=== PATIENT | female | born 1965 | race Caucasian/White ===

== ENCOUNTER → 2017-10-31 | Outpatient (CLI) | payer BC ==
--- NOTE | 2017-11-03 10:09 | MM ---
Reason for exam: screening (asymptomatic). Last mammogram was performed 1 year and 4 months ago. History: Family history of breast cancer in paternal grandmother at age 70. Took hormonal contraceptives for 6 years beginning at age 20. Physical Findings: A clinical breast exam by your physician is recommended on an annual basis and results should be correlated with mammographic findings. MG 3D Screening Mammo W/Cad Bilateral CC and MLO view(s) were taken. Prior study comparison: July 01, 2016, bilateral MG 3d diag mammo w/cad JOY. February 27, 2016, left breast MG diagnostic mammo LT w CAD. The breast tissue is heterogeneously dense. This may lower the sensitivity of mammography. Finding: There are typically benign round, grouped/clustered calcifications in the left breast. There is no discrete abnormality. ASSESSMENT: Benign, BI-RAD 2 RECOMMENDATION: Routine screening mammogram of both breasts in 1 year.
== END | disposition home or self-care (01) ==
LOC: RADMAMWWP 17:04
PROVIDERS: ATTEND Family Medicine
DX: Z12.31 Encounter for screening mammogram for malignant neoplasm of breast (principal)
CPT/HCPCS: 77063; 77067

== ENCOUNTER → 2018-11-16 | Outpatient (CLI) | payer BC ==
--- NOTE | 2018-11-17 12:59 | MM ---
Reason for exam: screening (asymptomatic). Last mammogram was performed 1 year and 1 month ago. History: Family history of breast cancer in paternal grandmother at age 70. Took hormonal contraceptives for 6 years beginning at age 20. Physical Findings: A clinical breast exam by your physician is recommended on an annual basis and results should be correlated with mammographic findings. MG 3D Screening Mammo W/Cad Bilateral CC and MLO view(s) were taken. Prior study comparison: October 31, 2017, bilateral MG 3d screening mammo w/cad. July 01, 2016, bilateral MG 3d diag mammo w/cad JOY. The breast tissue is heterogeneously dense. This may lower the sensitivity of mammography. No significant changes when compared with prior studies. ASSESSMENT: Negative, BI-RAD 1 RECOMMENDATION: Routine screening mammogram of both breasts in 1 year.
== END | disposition home or self-care (01) ==
LOC: RADMAMWWP 16:25
PROVIDERS: ATTEND Family Medicine
DX: Z12.31 Encounter for screening mammogram for malignant neoplasm of breast (principal)
CPT/HCPCS: 77063; 77067

== ENCOUNTER → 2020-05-22 | Outpatient (CLI) | payer BC ==
--- NOTE | 2020-05-23 11:14 | MM ---
Reason for exam: screening (asymptomatic). Last mammogram was performed 1 year and 6 months ago. History: Family history of breast cancer in paternal grandmother at age 70. Took hormonal contraceptives for 6 years beginning at age 20. Physical Findings: A clinical breast exam by your physician is recommended on an annual basis and results should be correlated with mammographic findings. MG 3D Screening Mammo W/Cad Bilateral CC and MLO view(s) were taken. Prior study comparison: November 16, 2018, bilateral MG 3d screening mammo w/cad. October 31, 2017, bilateral MG 3d screening mammo w/cad. The breast tissue is heterogeneously dense. This may lower the sensitivity of mammography. There are benign appearing round calcifications bilaterally. There is no discrete abnormality. ASSESSMENT: Benign, BI-RAD 2 RECOMMENDATION: Routine screening mammogram of both breasts in 1 year.
== END | disposition home or self-care (01) ==
LOC: RADMAMWWP 12:41
PROVIDERS: ATTEND Family Medicine
DX: Z12.31 Encounter for screening mammogram for malignant neoplasm of breast (principal)
CPT/HCPCS: 77063; 77067

== ENCOUNTER → 2020-11-24 | Outpatient (CLI) | payer BC | END | disposition home or self-care (01) | LOC: LABWHC1 15:53 | PROVIDERS: ATTEND Internal Medicine Rheumatology | DX: M35.01 Sjogren syndrome with keratoconjunctivitis (principal); L12.1 Cicatricial pemphigoid | CPT/HCPCS: 36415; 82955 ==

== ENCOUNTER → 2020-12-08 | Outpatient (CLI) | payer BC ==
[2020-12-08 15:35] LABS: HCT 29.3 % (37.2-46.3); MCH 34.1 pg (27.0-32.0); MCHC 30.7 g/dL (32.0-37.0); Mean Platelet Volume 11.7 fL (9.5-12.2); Platelet Count 275 X 10*3/uL (140-440); RBC 2.64 X 10*6/uL (4.10-5.20); RDW 22.7 % (11.5-14.5)
[2020-12-08 18:52] LABS: Basophils # (A) 0.15 X 10*3/uL (0.00-0.10); Basophils % (A) 1.3 %; Eosinophils # (A) 0.21 X 10*3/uL (0.04-0.35); Eosinophils % (A) 1.9 %; Lymphocytes # (A) 2.81 X 10*3/uL (0.90-5.00); Lymphocytes % (A) 24.9 %; Monocytes # (A) 0.81 X 10*3/uL (0.20-1.00); Monocytes % (A) 7.2 %; Neutrophils # (A) 7.24 X 10*3/uL (1.80-7.70)
[2020-12-08 18:53] LABS: Anisocytosis (M) 2+; Microcytosis (M) 3+; Polychromasia 2+; Schistocytes 1+
[2020-12-08 19:02] LABS: African American GFR (CKD) 97.6 (60.0-200.0); Albumin 4.3 g/dL (3.80-4.90); Albumin/Globulin Ratio 2.05 (1.60-3.17); Anion Gap 7.4 mmol/L (4.00-12.00); BUN/Creat Ratio 23.75 Ratio (12.00-20.00); Calcium 9.3 mg/dL (8.7-10.3); Carbon Dioxide 27.6 mmol/L (21.6-31.8); Chol/HDL Ratio 2.61; Globulin 2.1 g/dL (1.6-3.3); LDL Cholesterol,Calculated 99.6 mg/dL (0.0-131.0); Non-African American GFR(CKD) 84.2 (60.0-200.0); Potassium 4.5 mmol/L (3.5-5.5); Total Bilirubin 5.8 mg/dL (0.3-1.2); Total Protein 6.4 g/dL (6.2-8.2); VLDL Calculation 11.4 mg/dL (5.00-40.00)
[2020-12-08 19:09] LABS: T4, Free (Free Thyroxine) 1.2 ng/dL (0.80-1.80)
== END ==
LOC: LABWHC1 07:45
PROVIDERS: ATTEND Internal Medicine Rheumatology
DX: Z00.00 Encounter for general adult medical examination without abnormal findings (principal); Z51.81 Encounter for therapeutic drug level monitoring; M35.01 Sjogren syndrome with keratoconjunctivitis
CPT/HCPCS: 36415; 80053; 80061; 84439; 84443; 85025

== ENCOUNTER → 2021-06-12 | Outpatient (CLI) | payer BC ==
--- NOTE | 2021-06-13 14:44 | MM ---
Reason for exam: screening (asymptomatic). Last mammogram was performed 1 year and 1 month ago. History: Family history of breast cancer in paternal grandmother at age 70. Took hormonal contraceptives for 6 years beginning at age 20. Physical Findings: A clinical breast exam by your physician is recommended on an annual basis and results should be correlated with mammographic findings. MG 3D Screening Mammo W/Cad Bilateral CC and MLO view(s) were taken. Prior study comparison: May 22, 2020, bilateral MG 3d screening mammo w/cad. November 16, 2018, bilateral MG 3d screening mammo w/cad. October 31, 2017, bilateral MG 3d screening mammo w/cad. Finding: There are typically benign fine, diffuse/scattered calcifications in both breasts. No significant changes in finding since May 22, 2020, November 16, 2018, and October 31, 2017. ASSESSMENT: Benign, BI-RAD 2 RECOMMENDATION: Routine screening mammogram of both breasts in 1 year.
== END | disposition home or self-care (01) ==
LOC: RADMAMWWP 16:21
PROVIDERS: ATTEND Family Medicine
DX: Z12.31 Encounter for screening mammogram for malignant neoplasm of breast (principal); Z80.3 Family history of malignant neoplasm of breast; Z79.3 Long term (current) use of hormonal contraceptives
CPT/HCPCS: 77063; 77067

== ENCOUNTER → 2022-06-14 | Outpatient (CLI) | payer BC ==
--- NOTE | 2022-06-18 08:46 | MM ---
Reason for Exam: Screening (asymptomatic). Last screening mammogram was performed 12 month(s) ago. Patient History: Menarche at age 14. First Full-Term at age 30. Postmenopausal. Hormonal Contraceptives for 6 years from age 20 until age 26. Paternal grandmother had breast cancer, age 70. Risk Values: Sophia 5 year model risk: 1.3%. NCI Lifetime model risk: 9.1%. Prior Study Comparison: 11/16/2018 Bilateral Screening Mammogram, [facility]. 05/22/2020 Bilateral Screening Mammogram, [facility]. 06/12/2021 Bilateral Screening Mammogram, [facility]. Tissue Density: The breast tissue is extremely dense which could obscure a lesion on mammography. Findings: Analyzed By CAD. There is no suspicious group of microcalcifications or new suspicious mass in either breast. Overall Assessment: Negative, BI-RAD 1 Management: Screening Mammogram of both breasts in 1 year. A clinical breast exam by your physician is recommended on an annual basis and results should be correlated with mammographic findings. [facility] will attempt to contact patient to return for supplemental views and ultrasound if indicated. Electronically signed and approved by: Toni Ken DO
== END | disposition home or self-care (01) ==
LOC: RADMAMWWP 16:13
PROVIDERS: ATTEND Family Medicine
DX: Z12.31 Encounter for screening mammogram for malignant neoplasm of breast (principal); Z78.0 Asymptomatic menopausal state; Z80.3 Family history of malignant neoplasm of breast
CPT/HCPCS: 77063; 77067

== ENCOUNTER → 2023-07-07 | Outpatient (CLI) | payer BC ==
--- NOTE | 2023-07-07 15:26 | US ---
EXAMINATION TYPE: US thyroid st tissue head/neck DATE OF EXAM: 07/07/2023 COMPARISON: NONE CLINICAL INDICATION: Female, 58 years old with history of E06.9 THYROIDITIS; GLAND SIZE: Right Lobe: 4.3 x 2.1 x 1.2 cm Overall Parenchyma: Homogeneous Left Lobe: 4.4 x 1.9 x 1.5 cm Overall Parenchyma: Homogeneous Isthmus Thickness: 0.20 cm NODULES RIGHT: # of nodules measured on right: 0 LEFT: # of nodules measured on left: 1 1. 2.0 X 1.2 x 1.4 cm, upper mid, mixed cystic and solid, hypoechoic nodule, which is wider than ta ll, with smooth margins, without echogenic foci. ISTHMUS: # of nodules measured in the isthmus: 0 Bilateral neck scanned, no evidence of lymphadenopathy. Subcentimeter nodules noted bilaterally. IMPRESSION: Dominant left thyroid lobe 2.0 cm TR 3 nodule. Additional subcentimeter bilateral thyroid nodules. ACR TI-RADS LEVEL: TR-RADS 3 - Mildly Suspicious: Follow if > 1.5 cm, FNA if > 2.5 cm *Highest TI-RADS level nodule reported
== END | disposition home or self-care (01) ==
LOC: RADUSWWP 14:42
PROVIDERS: ATTEND Family Medicine
DX: E04.1 Nontoxic single thyroid nodule (principal); E06.9 Thyroiditis, unspecified
CPT/HCPCS: 76536

== ENCOUNTER → 2023-10-17 | Outpatient (CLI) | payer BC ==
--- NOTE | 2023-10-20 20:31 | MM ---
Reason for Exam: Screening (asymptomatic). Last mammogram was performed 1 year(s) and 4 month(s) ago. Patient History: Menarche at age 14. First Full-Term at age 30. Postmenopausal. Hormonal Contraceptives for 6 years from age 20 until age 26. Paternal grandmother had breast cancer, age 70. Risk Values: Sophia 5 year model risk: 1.4%. NCI Lifetime model risk: 8.9%. Prior Study Comparison: 05/22/2020 Bilateral Screening Mammogram, [facility]. 06/12/2021 Bilateral Screening Mammogram, [facility]. 06/14/2022 Bilateral MG 3D screening mammo w/cad, [facility]. Tissue Density: The breast tissue is heterogeneously dense. This may lower the sensitivity of mammography. Findings: Analyzed By CAD. There is no suspicious group of microcalcifications or new suspicious mass in either breast. Overall Assessment: Negative, BI-RAD 1 Management: Screening Mammogram of both breasts in 1 year. . Patient should continue monthly self-breast exams. A clinical breast exam by your physician is recommended on an annual basis. This exam should not preclude additional follow-up of suspicious palpable abnormalities. Note on Sophia scores and lifetime risk: 1. A Sophia score greater than 3% is considered moderate risk. If this is the case, consider specialist referral to assess eligibility for a risk reducing agent. 2. If overall lifetime risk for the development of breast cancer is 20% or higher, the patient may qualify for future screening with alternating mammogram and breast MRI. Electronically signed and approved by: Ethan Zhao M.D. Radiologist
== END | disposition home or self-care (01) ==
LOC: RADMAMWWP 09:52
PROVIDERS: ATTEND Family Medicine
DX: Z12.31 Encounter for screening mammogram for malignant neoplasm of breast (principal); Z80.3 Family history of malignant neoplasm of breast; Z78.0 Asymptomatic menopausal state
CPT/HCPCS: 77063; 77067